=== PATIENT | male | born 1995 | race Two or more races ===

== ENCOUNTER → 2021-02-15 | Outpatient (CLI) | payer OTHER ==
[~2021-02-15] MED LIST: PRED10 PO
== END | disposition home or self-care (01) ==
LOC: LAB SHORT 17:46
DX: L02.416 Cutaneous abscess of left lower limb (principal); D22.61 Melanocytic nevi of right upper limb, including shoulder; D22.62 Melanocytic nevi of left upper limb, including shoulder; Z71.89 Other specified counseling
CPT/HCPCS: 87070; 87077; 87186; 87205